=== PATIENT | male | born 1940 | race Caucasian/White ===

== ENCOUNTER 2023-07-07 12:38 | Outpatient (CLI) | payer MEDICARE, BC, SELFPAY ==
[2023-07-07] MEDS: TETRACAINE 0.5% OPHTH 1 DROP EYE-LEFT ×3 (12:50→13:16)
[2023-07-07] MEDS: BRIMONIDINE TARTRATE 0.2% OPHTH 1 DROP EYE-LEFT ×2 (12:54→13:30)
[2023-07-07 12:55] VITALS: BP 133/88; PULSE 64; RESP 16; O2SAT 95
--- NOTE | 2023-07-07 13:30 | W.PM.OPTPROC ---
Procedure Note Date of procedure: 07/07/23 Will [facility] bill your pro fee for this procedure?: Yes Procedure Description: SURGEON: Montse Solano MD PREOPERATIVE DIAGNOSIS: Posterior capsular opacity, left eye POSTOPERATIVE DIAGNOSIS: Posterior capsular opacity, left eye PROCEDURE: YAG laser capsulotomy, left eye ANESTHESIA: Topical. ESTIMATED BLOOD LOSS: None PATHOLOGY SPECIMEN: None COMPLICATIONS: None INDICATIONS: See consult note for details. The risks, benefits and alternatives of the procedure were explained to the patient, who elected to proceed and signed informed consent to do so. PROCEDURE: The patient was brought to the pre-holding area where the left eye was identified as the operative eye. I placed my initials above this eye. The patient received 2 sets of 1 drop of 0.5% tetracaine and 1 drop of 1% tropicamide. They also received 1 drop of 0.2% brimonidine. They received 1 drop of 0.5% tetracaine immediately prior to bringing them back for the procedure. The patient was then brought to the procedure room where the left eye was again identified as the operative eye. A YAG Aramndo capsulotomy lens was placed on the eye. The laser was administered using a total number of 13 shots with an energy of 2.4 mJ per shot for a total energy of 31 mJ. The patient tolerated the procedure well. DISPOSITION: The patient was taken back to the pre-holding area and given 1 drop of 0.2% brimonidine in the left eye. They were discharged to home in stable condition. The patient was instructed to call me or go to the emergency department with any sudden change, including dramatic loss of vision, severe pain in the eye or eyebrow region, nausea, or vomiting. The patient was instructed to use the 0.2% brimonidine 1 drop 2 times a day in the left eye for 1 week. The patient will follow up in the clinic in 1-2 weeks
== END 2023-07-07 13:31 | disposition home or self-care (01) ==
LOC: EYE PRC 12:44
PROVIDERS: Visit Provider Ophthalmology
DX: H26.9 Unspecified cataract (principal)
CPT/HCPCS: 66821; A9270

== ENCOUNTER 2024-04-05 07:52 | Day surgery (SDC) | payer MEDICARE, BC, SELFPAY ==
[2024-04-05] VITALS (24 sets, daily range): BP systolic 101–142; BP diastolic 57–90; PULSE 50–92; RESP 16–18; TEMP 35.9–36.6; O2SAT 92–99; BMI 28.0
[2024-04-05] MEDS: OXYCODONE (CR) 10 MG TAB.ER.12H PO (09:00)
[2024-04-05] MEDS: ACETAMINOPHEN 500 MG TABLET 1000 MG PO ×3 (09:00→23:56)
[2024-04-05] MEDS: LACTATED RINGERS 1000 ML 1,000 ML 100 ML IV (09:40)
[2024-04-05] MEDS: SODIUM CHLORIDE 0.9 % (FLUSH) 10 ML SYRINGE IVF (09:40)
[2024-04-05] MEDS: MIDAZOLAM HCL 1 MG/ML inj IVP (10:26)
[2024-04-05] MEDS: fentaNYL 100 MCG/2 ML inj IVP (10:26)
--- NOTE | 2024-04-05 10:31 | SUR.PREOP ---
TIME?OUT:?1025 PT/RN/MDA?VERIFICATION?OF?SURGICAL?SITE,?PROCEDURE,?AND?CONSENT OBTAINED?PRIOR?TO?INVASIVE?PROCEDURE.
--- NOTE | 2024-04-05 10:55 | W.PM.H&PU ---
History & Physical Update History & Physical Update H&P Reviewed and patient assessed: No changes noted
--- NOTE | 2024-04-05 10:56 | CRLHL7_ITS ---
For Patients: As a result of the Cures Act, medical imaging exams and procedure reports are released immediately into your electronic medical record. You may view this report before your referring provider. If you have questions, please contact your health care provider. INDICATION: Post operative knee arthroplasty TECHNIQUE: Knee radiograph 2 views left COMPARISON: None FINDINGS: Bone: No acute fractures or aggressive bone lesions are identified. Joint: The patient is status post a total knee arthroplasty with patellar resurfacing. No significant knee effusion is seen. Soft tissue: Overlying fabric artifacts moderately degrade the evaluation of the soft tissues and osseous structures. Varicose veins are present along the medial soft tissues. Soft tissue gas is present from recent surgery. No radiopaque foreign bodies are seen. IMPRESSION: 1. There is an unremarkable postoperative appearance of the knee arthroplasty. Dictated by Ethan Patton MD @ 04/05/2024 1:54:25 PM Dictated by: Ethan Patton MD @ 04/05/2024 13:54:29 (Electronically Signed)
[2024-04-05] MEDS: TRANEXAMIC ACID 100 MG/ML INJ 1000 MG IV (11:03)
[2024-04-05] MEDS: CEFAZOLIN 2 GM in 0.9 % SODIUM CHLORIDE Mini-bag 100 ML IVPB ×2 (11:03→18:07)
--- NOTE | 2024-04-05 12:18 | P.ORPRC_ITS ---
Procedure Note Date of procedure: 04/05/24 Procedure: PREOPERATIVE DIAGNOSIS: 1. Left knee osteoarthritis, primary, severe POSTOPERATIVE DIAGNOSIS: 1. Left knee osteoarthritis, primary, severe PROCEDURE: 1. Left total knee arthroplasty - subvastus SURGEON: Donta Vazquez MD. PROVIDER RELATIONS REP: Maximiliano Gutierrez PA-C - Of note, a skilled hair or beauty salon assistant was critical for this case to aid in patient positioning, tissue retraction, limb manipulation/positioning, and closure. ANESTHESIA: Spinal anesthetic EBL: 50ml IMPLANTS: DePuy J&J all cemented TKA - Attune PS femur size 7, size 7 tibia, 5 poly spacer, 41mm patella TOURNIQUET: 90 min at 300 torr COMPLICATIONS: None evident INDICATIONS: The patient is a pleasant 84-year-old male who has experienced severe left knee pain and difficulty bearing weight. Workup included x-rays w the [facility] revealed severe osteoarthrosis in the knee. Given the deformity, the dysfunction, and the pain, as well as the failure of nonoperative management, recommendation was made for surgery. FINDINGS: Full-thickness chondral loss diffusely throughout the medial compartment. To lesser degree but still significant patellofemoral and lateral compartment. Degenerative meniscus pathology (medial greater than lateral). Large effusion upon entering the joint. Large osteophytes around perimeter of the femur including posterior. Large popliteal cyst encountered. Ganglion cyst within the PCL tissue. DESCRIPTION OF PROCEDURE: Following a thorough discussion of risks, benefits, and alternatives consent was obtained and the left knee was marked. The patient was brought to the operating room and placed supine on the operating table. Induction of anesthesia was undertaken. 2 g IV Ancef and 1 g tranexamic acid was administered within 1 hr of incision preoperatively. Proper time-out was p erformed identifying proper patient, site, procedure. The operative extremity was prepped and draped in the appropriate sterile fashion using ChloraPrep after the patient was positioned supine with all bony prominences well padded. A longitudinal, anterior, midline skin incision was made starting approximately 3cm proximal to the superior pole of the patella and advanced distal to the tibial tubercle. A subvastus approach was utilized. A medial subperiosteal sleeve was created with knife, benoit elevator and curved osteotome. The retropatellar fatpad was resected and the synovium in the suprapatellar pouch excised to visualize the anterior femoral cortex. Femoral preparation was performed via an intramedullary guide. Step drill allowed access into the femoral canal. The distal cutting guide was placed with 5? of valgus and 11 mm cut on the distal femur due to a 10?+ flexion contracture. Femur was sized using a anterior referencing guide in 3? of external rotation. This found have a best fit with the sizing noted above. The 4 in 1 cutting block was then placed, and the distal femur shaped accordingly. The box cut was then created and the trial implant inserted to confirm appropriate fit. We turned our attention to the proximal tibia. Extramedullary guide was utilized for cutting with the goal of being 90 degree cut from the mechanical axis of the tibia in the varus/valgus plane utilizing tibial crest as the primary alignment. Initially a 2 mm resection was performed from the medial tibial plateau. Ultimately, balancing was achieved in both flexion and extensio n in both varus and valgus. The knee was able to achieve full extension as well comfortably. The patella was initially measured and found have a thickness of 27 mm. It was resected back to approximately 16.5 mm. It was sized to be a best fit with as noted above. This was drilled, trial placed. All trials were placed and found to have an excellent stability and balance. At this stage, trial implants were removed, the knee was thoroughly irrigated with normal saline, and the cement was mixed. After irrigation, the knee was thoroughly dried, and cement placed, with the real tibial and femoral implants placed along with the patella. Trial poly spacer was placed and confirmed to have excellent range of motion and full extension, and the real poly spacer opened and inserted. All extra cement was removed, and a 3 min Betadine soak performed. Finally, a final irrigation round with normal saline was performed. Closure performed with 0 PDS and #0 Stratafix for the quad tendon/retinaculum. 2-0 Vicryl/Stratafix for the subcutaneous and 4-0 Monocryl for subcuticular closure. Dressings were applied and the patient was awoken from anesthesia after the tourniquet deflated and transferred the PACU in stable condition. A skilled hair or beauty salon assistant was critical for this case to aid in patient positioning, tissue retraction, bone exposure, limb manipulation/positioning, patient safety, and closure. PLAN: 1. Weight bear as tolerated operative extremity. 2. 23 hr perioperative antibiotics. 3. Ice. 4. PT/OT consults for ambulation assistance/mobility education. 5. Social work consult for discharge planning. 6. DVT prophylaxis with at SCDs and aspirin twice daily.
--- NOTE | 2024-04-05 13:10 | P.ANES_ITS ---
Anesthesia Charges Start Date/Time Anesthesia Start Date: 04/05/24 Anesthesia Start Time: 10:47 Stop Date/Time Anesthesia Stop Date: 04/05/24 Anesthesia Stop Time: 13:07 Summary Extremes of Age - Over 70 or under 1: BENEFITS TECHNICIAN
--- NOTE | 2024-04-05 14:08 | W.ANESCHARGE ---
Anesthesia Charges Start Date/Time Anesthesia Start Date: 04/05/24 Anesthesia Start Time: 10:47 Stop Date/Time Anesthesia Stop Date: 04/05/24 Anesthesia Stop Time: 13:07 Summary Extremes of Age - Over 70 or under 1: MDA
--- NOTE | 2024-04-05 14:09 | P.NB_ITS ---
Nerve Block Nerve Block Time Seen by Provider: 10:30 Date Seen: 04/05/24 Type of block requested by surgeon for post-operative analgesia: adductor canal Side: left Time out performed: Yes Verification of patient name: Yes Verification of date of : Yes Site marking: site marked Name of person performing procedure: Gera Continuous monitoring Was continuous monitoring of O2 sat, B/P, cardiac cath lab manager, recorded every 15 minutes?: Yes Procedure Checklist: sterile prep, needles and gloves Ultrasound guided. Images saved: Yes Medications given in 5ml increments after negative aspiration: Marcaine %: 0.25 mL: 15 Needle gauge: 20 Precedex (mcg): 25 Patient tolerated procedure well: Yes Block Charges Block Charge (with Pro Fee): Femoral Nerve Use of Ultrasound Machine for Block: Yes- US Guidance/pain block
--- NOTE | 2024-04-05 14:09 | P.NB_ITS ---
Nerve Block Nerve Block Time Seen by Provider: 10:30 Date Seen: 04/05/24 Type of block requested by surgeon for post-operative analgesia: geniculars Time out performed: Yes Verification of patient name: Yes Verification of date of : Yes Site marking: site marked Name of person performing procedure: Gera Continuous monitoring Was continuous monitoring of O2 sat, B/P, compliance monitor, recorded every 15 minutes?: Yes Procedure Checklist: sterile prep, needles and gloves Ultrasound guided. Images saved: Yes Medications given in 5ml increments after negative aspiration: Marcaine %: 0.25 mL: 9 Needle gauge: 25 Patient tolerated procedure well: Yes Block Charges Block Charge (with Pro Fee): Genicular Nerve Block
--- NOTE | 2024-04-05 15:29 | PC.NURSE ---
Pt arrived to floor at 1340, arousable, oriented and vitally stable. Pt originally on 2L via NC for low O2 sats, since has improved and has been weaned off, sating mid s. Pt temperatures a little low, 96.5, Biar hugger placed, temperatures showing improvement. Spouse and son at bedside. Ice chips and water given, tolerating well. call light within reach.
--- NOTE | 2024-04-05 18:10 | PM.IMCN1 ---
Date of Consult Consult date: 04/05/24 Primary Care Provider: Sabina Mckinley PA-C Consult Narrative Narrative: Suresh Tovar is a 84 year old male who is relatively healthy except for severe Left knee osteoarthritis, for which he was admitted electively to undergo Left total knee arthroplasty. Estimated blood loss during the surgery today was about 50 mL. Admit the patient postoperatively and he was doing well, pain is controlled. He already was able he to urinate and walk to the bathroom. Review of Systems Status of ROS: Reports: 6 or more systems reviewed and unremarkable except as noted in History and below [facility] Medical History (Updated 04/04/24 @ 07:48 by Stella Ferreira RN) Osteoarthritis of left knee ?M17.12 - Unilateral primary osteoarthritis, left knee (ICD-10) Hyperlipidemia ?E78.5 - Hyperlipidemia, unspecified (ICD-10) Surgical History (Updated 04/05/24 @ 22:13 by Kanchan Marion MD) History of total right knee replacement (~2013) ?Z96.651 - Presence of right artificial knee joint (ICD-10) Social History (Updated 02/22/24 @ 09:42 by Alma Kasper ~ [facility]) Narrative: former smoker () for 65 years (caring for with dementia x2019) What is your current living situation?: I presently have a place to live Problems where you live: no known problems In the past 12 months, utilities in danger of being shut off: no In the past 12 mos, have been you worried that your food would run out before you had money to buy more?: never true In the past 12 mos, the food you bought just didn't last and you didn't have money to buy more?: never true Highest level of school completed/degree received: some college, no degree Smoking Status: Former smoker What tobacco products do you use: cigarettes Smoking packs per day: 3 Smoking cigarettes per day: 60.0 Years smoked: 10 Smoking pack-years: 30.00 Smoking quit date/years: >15 years ago Do you use any of these nicotine containing products: None Second hand tobacco smoke exposure: No How often do you have a drink containing alcohol: never How often do you have six or more drinks on one occasion: Never AUDIT-C Alcohol total score: 0 Non-prescribed substance use: denies use Caffeine: No How often does anyone, including family, friends and others, physically hurt you: never How often does anyone, including family, friends and others, insult or talk down to you: never How often does anyone, including family, friends and others, threaten you with harm: never How often does anyone, including family, friends and others, scream or curse at you: never service: No Meds Home Medications and Allergies Home Medications ?Medication ?Instructions ?Recorded ?Confirmed ?Type fesoterodine 4 mg tablet,extended 4 mg PO DAILY 02/22/24 04/05/24 History release 24 hr gabapentin 100 mg capsule 100 mg PO HS 02/22/24 04/05/24 History hydroxyzine HCl 10 mg tablet 10 mg PO HS PRN itch 02/22/24 04/05/24 History pravastatin 20 mg tablet 20 mg PO DAILY 02/22/24 04/05/24 History Allergies Allergy/AdvReac Type Severity Reaction Status Date / Time Penicillins Allergy Hives Verified 04/05/24 09:50 Exam Narrative: Exam Narrative: Physical exam GENERAL: Comfortable, no acute distress. HEAD AND NECK: Atraumatic, normocephalic CARDIOVASCULAR: RRR. Normal S1, S2. No murmurs. RESPIRATORY: Clear to auscultation B/L. Good air entry B/L. No wheezes or rhonchi. GASTROINTESTINAL: Not distended, not tender to palpation. NEUROLOGY: Alert, awake, oriented X 3. Normal speech. PSYCH: Normal mood, normal affect. Const: Vital Signs, click to edit/add: Vital Signs - 24 hr 04/05/24 09:07 04/05/24 10:26 04/05/24 10:30 Temperature 97.9 F Pulse Rate 58 L 55 L 53 L Pulse Rate [Right Pulse Oximeter] Respiratory Rate 16 16 16 Blood Pressure 142/90 H 131/82 113/71 Blood Pressure [Le ft Arm] Pulse Oximetry 96 96 95 Oxygen Delivery Me thod Room Air Nasal Cannula Nasal Cannula Oxygen Flow Rate 2 2 04/05/24 13:05 04/05/24 13:10 04/05/24 13:15 Temperature 97.2 F L Pulse Rate 55 L 55 L 54 L Pulse Rate [Right Pulse Oximeter] Respiratory Rate 16 16 16 Blood Pressure 101/64 104/65 105/72 Blood Pressure [Le ft Arm] Pulse Oximetry 94 94 94 Oxygen Delivery Me thod OxyMask OxyMask OxyMask Oxygen Flow Rate 4 4 4 04/05/24 13:20 04/05/24 13:25 04/05/24 13:30 Temperature Pulse Rate 53 L 54 L 55 L Pulse Rate [Right Pulse Oximeter] Respiratory Rate 16 16 16 Blood Pressure 109/67 107/66 107/67 Blood Pressure [Le ft Arm] Pulse Oximetry 93 93 93 Oxygen Delivery Me thod OxyMask OxyMask OxyMask Oxygen Flow Rate 4 4 4 04/05/24 13:35 04/05/24 13:40 04/05/24 13:45 Temperature Pulse Rate 54 L 50 L 53 L Pulse Rate [Right Pulse Oximeter] Respiratory Rate 16 16 16 Blood Pressure 109/66 123/76 126/72 Blood Pressure [Le ft Arm] Pulse Oximetry 93 92 93 Oxygen Delivery Me thod OxyMask Oxygen Flow Rate 4 2 2 04/05/24 13:48 04/05/24 14:00 04/05/24 14:15 Temperature 97.8 F 96.6 F L 97.4 F L Pulse Rate 51 L 53 L Pulse Rate [Right Pulse Oximeter] 92 Respiratory Rate 16 16 16 Blood Pressure 130/76 123/73 Blood Pressure [Le ft Arm] 123/76 Pulse Oximetry 92 94 92 Oxygen Delivery Me thod Nasal Cannula Oxygen Flow Rate 2 2 1 04/05/24 14:30 04/05/24 14:38 04/05/24 15:00 Temperature 97.8 F 97.8 F Pulse Rate 51 L 51 L 55 L Pulse Rate [Right Pulse Oximeter] Respiratory Rate 16 16 Blood Pressure 122/78 122/78 131/88 Blood Pressure [Le ft Arm] Pulse Oximetry 95 95 99 Oxygen Delivery Me thod Nasal Cannula Oxygen Flow Rate 0 2 Assessment and Plan Assessment and plan (1) Total knee replacement status: Problem comment: -Start early ambulation with physical therapy. -Start DVT prophylaxis tonight w/ Aspirin 81 mg BID. -pain management -perioperative antibiotics -Monitor for urine output postoperatively, bladder scan if needed. Status: Acute (2) Osteoarthritis of left knee: Problem comment: Severe, [id number] Status: Acute Plan As above Total Time Spent Total Time Spent: Time spent: Today I spent 75 minutes seeing the patient, discussing the patient with ER staff, reviewing Expanse and EPIC notes/diagnostics, discussing the care plan with our care time that includes social work, PT/OT, pharmacy, RT, snf and documenting my impressions and plan in the medical record.
--- NOTE | 2024-04-05 18:51 | PC.NURSE ---
shift note: vss stable. pt using IS to 2500 indept. lt knee drsg c/d/i, pt rating pain 05/26. pt tolerating reg diet. pt up 1/walker/GB to bathroom to void
[2024-04-05] MEDS: SENNOSIDES 1 TAB TABLET 2 TAB PO (21:09)
[2024-04-05] MEDS: ASPIRIN 81 MG TABLET EC PO (21:10)
[2024-04-06] MEDS: CEFAZOLIN 2 GM in 0.9 % SODIUM CHLORIDE Mini-bag 100 ML IVPB ×2 (01:16→08:37)
[2024-04-06 02:02] VITALS: BP 94/56; PULSE 57; RESP 16; TEMP 36.5; O2SAT 90
[2024-04-06] MEDS: ACETAMINOPHEN 500 MG TABLET 1000 MG PO ×2 (05:17→11:08)
--- NOTE | 2024-04-06 06:24 | PC.NURSE ---
Shift note ([id number]): Patient pleasant, alert and oriented. Rated pain in left knee 05/26. Dressing C,D&I. Ambulating with walker, gait belt and assist of one. Rec?d scheduled Tylenol. Active ice applied. O2 sats dropped to 86-89% on room air during night.?Patient denied feeling SOB at that time. Oxygen placed at 2.5 LPM to keep sats above 90%. O2 was later decreased to 1 LPM and sats remained 90-94%. Patient weaned off O2 and is 90-98% on room air at this time.?
[2024-04-06 06:59] LABS: Potassium* 4.4 mmol/L (3.6-5.1); Sodium* 135 mmol/L (135-149)
[2024-04-06 07:00] VITALS: PULSE 57; RESP 18
[2024-04-06 07:02] LABS: Blood Urea Nitrogen* 26 mg/dL (7-30); Creatinine* 1.1 mg/dL (0.5-1.5); Est. Creatinine Clearance* 52.54; Estimated Glomerular Filt Rate 67 ml/min
[2024-04-06 07:06] LABS: Basophils Percent Auto 0.2 % (0.0-3.0); Eosinophils Percent Auto 0.1 % (0.0-7.0); Hematocrit 39.5 % (37.0-53.0); Hemoglobin* 12.9 gm/dL (13.5-17.5); Immature Granulocytes Pct Auto 0.2 %; Lymphocytes Percent Auto 8.6 % (20-44); Mean Corpuscular HGB Conc 33 gm/dL (32-36); Mean Corpuscular Hemoglobin 29 pg (26-34); Mean Corpuscular Volume 90 fL (80-100); Monocytes Percent Auto 7.8 % (0.0-11.0); Neutrophils Percent Auto 83.1 % (42.0-72.0); Platelet Count* 201 K/uL (140-440); RDW Coefficient of Variation % 14.1 % (11.5-15.5); White Blood Count* 11.32 K/uL (4.50-11.00)
[2024-04-06 07:14] LABS: Slide Review Reflex No
[2024-04-06 08:05] VITALS: RESP 18; O2SAT 99
[2024-04-06 08:15] VITALS: BP 112/58; PULSE 57; RESP 18; TEMP 36.8; O2SAT 99
[2024-04-06] MEDS: SENNOSIDES 1 TAB TABLET 2 TAB PO (08:37)
[2024-04-06] MEDS: ASPIRIN 81 MG TABLET EC PO (08:37)
[2024-04-06] MEDS: OXYCODONE 5 MG TABLET PO (09:08)
[2024-04-06 11:00] VITALS: BP 127/72; PULSE 53; RESP 16; TEMP 36.4
--- NOTE | 2024-04-06 11:18 | PM.ORPN ---
Subjective Subjective Date Seen: 04/06/24 Principal diagnosis: Status postop day 1 left total knee arthroplasty Interval history: Patient reports doing well. States he is doing wonderful. No significant pain. Son reports that he has a high pain tolerance. No acute events over night. Pain managed with scheduled and PRN medications, ice. DVT prophylaxis: 81 mg aspirin by mouth twice daily, SCDs, walking. Denies fevers, chills, aches, N/V, CP, SOB/TEMPLETON, or lightheadedness. Ortho Exam Narrative Exam Narrative: -Patient appears comfortable; no apparent acute distress -Alert and oriented times 3 -Operative knee mildly swollen; soft tissues supple; no ecchymosis; no erythematous streaking Warmth appropriate -Surgical dressing clean, dry, intact; no drainage -Bilateral calfs soft; no significant swelling, edema, tenderness, erythema, discoloration, warmth, or palpable cords -2+ DP/PT pulses, intact dermatomes and myotomes distally (5/5 strength) Const Vital Signs, click to edit/add: Vital Signs - 24 hr 04/05/24 13:05 04/05/24 13:10 04/05/24 13:15 Temperature 97.2 F L Pulse Rate 55 L 55 L 54 L Pulse Rate [Right Pulse Oximeter] Respiratory Rate 16 16 16 Blood Pressure 101/64 104/65 105/72 Blood Pressure [Left Arm] Blood Pressure [Right Arm] Pulse Oximetry 94 94 94 Oxygen Delivery Method OxyMask OxyMask OxyMask Oxygen Flow Rate 4 4 4 04/05/24 13:20 04/05/24 13:25 04/05/24 13:30 Temperature Pulse Rate 53 L 54 L 55 L Pulse Rate [Right Pulse Oximeter] Respiratory Rate 16 16 16 Blood Pressure 109/67 107/66 107/67 Blood Pressure [Left Arm] Blood Pressure [Right Arm] Pulse Oximetry 93 93 93 Oxygen Delivery Method OxyMask OxyMask OxyMask Oxygen Flow Rate 4 4 4 04/05/24 13:35 04/05/24 13:40 04/05/24 13:45 Temperature Pulse Rate 54 L 50 L 53 L Pulse Rate [Right Pulse Oximeter] Respiratory Rate 16 16 16 Blood Pressure 109/66 123/76 126/72 Blood Pressure [Left Arm] Blood Pressure [Right Arm] Pulse Oximetry 93 92 93 Oxygen Delivery Method OxyMask Oxygen Flow Rate 4 2 2 04/05/24 13:48 04/05/24 14:00 04/05/24 14:15 Temperature 97.8 F 96.6 F L 97.4 F L Pulse Rate 51 L 53 L Pulse Rate [Right Pulse Oximeter] 92 Respiratory Rate 16 16 16 Blood Pressure 130/76 123/73 Blood Pressure [Left Arm] 123/76 Blood Pressure [Right Arm] Pulse Oximetry 92 94 92 Oxygen Delivery Method Nasal Cannula Oxygen Flow Rate 2 2 1 04/05/24 14:30 04/05/24 14:38 04/05/24 15:00 Temperature 97.8 F 97.8 F Pulse Rate 51 L 51 L 55 L Pulse Rate [Right Pulse Oximeter] Respiratory Rate 16 16 Blood Pressure 122/78 122/78 131/88 Blood Pressure [Left Arm] Blood Pressure [Right Arm] Pulse Oximetry 95 95 99 Oxygen Delivery Method Nasal Cannula Oxygen Flow Rate 0 2 04/05/24 15:00 04/05/24 15:00 04/05/24 15:00 Temperature 96.7 F L Pulse Rate Pulse Rate [Right Pulse Oximeter] 53 L Respiratory Rate 18 18 Blood Pressure Blood Pressure [Left Arm] 131/88 Blood Pressure [Right Arm] Pulse Oximetry 93 93 93 Oxygen Delivery Method Room Air Room Air Oxygen Flow Rate 04/05/24 15:30 04/05/24 16:30 04/05/24 17:30 Temperature 96.7 F L 96.7 F L 96.7 F L Pulse Rate 54 L 57 L 72 Pulse Rate [Right Pulse Oximeter] Respiratory Rate 18 18 18 Blood Pressure 142/80 H 122/78 136/90 H Blood Pressure [Left Arm] Blood Pressure [Right Arm] Pulse Oximetry 94 94 94 Oxygen Delivery Method Room Air Room Air Room Air Oxygen Flow Rate 04/05/24 18:30 04/05/24 19:42 04/05/24 23:00 Temperature 97.3 F L 97.5 F L 97.5 F L Pulse Rate 78 73 Pulse Rate [Right Pulse Oximeter] 63 Respiratory Rate 18 17 16 Blood Pressure 108/78 121/68 Blood Pressure [Left Arm] Blood Pressure [Right Arm] 101/57 L Pulse Oximetry 93 93 94 Oxygen Delivery Method Room Air Room Air Room Air Oxygen Flow Rate 2 04/05/24 23:00 04/05/24 23:00 04/06/24 02:02 Temperature 97.7 F Pulse Rate Pulse Rate [Right Pulse Oximeter] 57 L Respiratory Rate 16 16 Blood Pressure Blood Pressure [Left Arm] Blood Pressure [Right Arm] 94/56 L Pulse Oximetry 94 94 90 Oxygen Delivery Method Room Air Room Air Oxygen Flow Rate 2.5 04/06/24 08:05 04/06/24 08:05 04/06/24 08:15 Temperature 98.3 F Pulse Rate Pulse Rate [Right Pulse Oximeter] 57 L Respiratory Rate 18 18 Blood Pressure Blood Pressure [Left Arm] 112/58 L Blood Pressure [Right Arm] Pulse Oximetry 99 99 99 Oxygen Delivery Method Room Air Room Air Oxygen Flow Rate Assessment and Plan Assessment and plan (1) Total knee replacement status: Problem details: -Start early ambulation with physical therapy. -Start DVT prophylaxis tonight w/ Aspirin 81 mg BID. -pain management -perioperative antibiotics -Monitor for urine output postoperatively, bladder scan if needed. Status: Acute (2) Osteoarthritis of left knee: Problem details: Severe, [id number] status post total knee arthroplasty Status: Acute Plan - Complete 23 hour perioperative antibiotics. - PT/OT consult for education and assistance. - Social work consult for discharge planning - Prescribed analgesics as needed - DVT prophylaxis: 81 mg aspirin by mouth twice daily, walking, and SCDs - Anticipation is for discharge to home with family/friends today 04/06/2024 if the patient remains medically stable, pain is controlled, and they are safe with mobilization.
--- NOTE | 2024-04-06 12:10 | PC.SOCIAL ---
Social work paid internship met with pt and pt's son to complete a discharge planning assessment. Pt has not been admitted to any hospital in the last 30 days and is his own medical decision maker. Pt lives with his son in [place]. His bedroom and bathroom are connected and both on the first level. He also has grandchildren nearby that can help when needed. Pt is aware of meal delivery and home appliance installer services, but is not requesting resources on those at this time. Pt's son helps with daily ADLs at home. This is the pt's second joint and he feels comfortable with the recovery process and discharging home. No mental health needs identified. Social work to follow up if needed.
--- NOTE | 2024-04-06 13:15 | PC.NURSE ---
DC: Pt alert, oriented and vitally stable. Pt pain rated 0-2/10 throughout shift, though pt premedicated with prn oxy before PT/OT. Pt on regular diet and tolerates well. DC education given to pt and son, topic including meds and follow up, DC home at 1233.
== END 2024-04-06 12:33 | disposition home or self-care (01) ==
LOC: OR 07:54 → MEDSURG 07:59
PROVIDERS: PCP Physician Assistant Medical; Visit Provider Orthopaedic Surgery Sports Medicine
PROC: (CPT 27447; principal; 2024-04-05 11:00)
DX: M17.12 Unilateral primary osteoarthritis, left knee (principal); G89.18 Other acute postprocedural pain; M71.22 Synovial cyst of popliteal space [Baker], left knee; M67.462 Ganglion, left knee; E78.5 Hyperlipidemia, unspecified; Z96.651 Presence of right artificial knee joint; Z87.891 Personal history of nicotine dependence
CPT/HCPCS: 27447; 01402; 36415; 64447; 64454; 73560; 76942; 82565; 84132; 84295; 84520; 85025; 97110; 97116; 97161; 97165; 97530; 97535; 99100; A9270; C1776; J0665; J0690; J1100; J2250; J2371; J2405; J2704; J3010; J7120

== ENCOUNTER 2024-05-19 14:00 | Outpatient (RCR) | payer MEDICARE, BC, SELFPAY ==
--- NOTE | 2024-03-27 16:04 | PT.OPEX ---
PT [place] [facility] Eval PT [facility] Out[facility] Eval Start: 03/27/24 08:48 Freq: Status: Active Protocol: Document 03/27/24 15:47 KLV (Rec: 03/27/24 16:01 KLV [id number]) E-signed By Fani Jimenez, PT Physical Therapy Outpatient Evaluation Insurance Information Recert Due Date 06/21/24 Insurance Name Medicare B,[employer] Medical Diagnosis Left knee OA Pre and post-op L TKA 04/05/24 Treating Diagnosis Left knee pain, limited knee ROM, antalgic gait, muscle weakness Referring MD Taylor Rawls Suresh presents to PT with primary complaint of chronic left knee pain affecting his ability to go on prolong walks , stand for extended periods and drive for extended periods . Currently not using AD. X- rays indicated severe bone on bone OA. He had been caring for his with dementia however no longer assisting with this as he has started to have some mild short term memory loss as well. Generally he is independent and drives however lives with his son and daughter in law who do assist with laundry and cooking/ cleaning. He lives on the main level with 2 stairs to enter (no railings), tub shower on main level. Upstairs does have a walk-in shower however no railings to get to the top floor. Previous R TKA in 2013. Does note some shoulder pain/ wear and tear from job that he has retired from and looking to possibly have surgery on this in the near future. Pain Comments 2-12/24 Date of Last Physician Visit 02/22/24 Date of Surgery (If applicable) 04/05/24 Current Work Status Retired Objective Other/Pertinent Objective Knee ROM: -L 5-115 Gait: limited terminal knee extension, limited stance time L, trendelenburg L TTP medial and lateral joint lines Quad activation: good Functional Test Performed & Score LEFS: 18/80 Assessment Assessment/Impression Suresh is an 84 year old male presenting to PT for preparation of upcoming L TKA DOS 04/05/24 d/t end stage OA. Patient is independent with mobility and most ADLs however with beginning stages of short term memory loss his [id number] assists with laundry and cooking. Lives with them on the main level. Educated patient on where to obtain medical equipment if he is not able to locate his walker. Also discussed arranging rides to post- operative appointments and provided information for additional resources for this. Session focused on education of post-operative fall prevention precautions, transfers, gait with AD, stair negotiation, post-operative exercises. He is able to verbalize precautions and demonstrated independence with exercises, gait and stairs. He is appropriate to proceed with surgery at this time. Plan of Care Rehabilitation Potential Good Physical Therapy Goals By end of session today, patient will... Demonstrate appropriate gait pattern with 2WW to utilize post surgery for optimal safety when ambulating Demonstrate ability to negotiate stairs using appropriate stair pattern post surgery for optimal safety when at home and in community Verbalize understanding of most appropriate home set up including needed equipment for optimal safety and recovery post surgery Be independent in HEP program to show ability to perform appropriate exercises post surgery Treatment Plan/Direct Interventions Gait Training,Ice/Cold/ Vasopneumatic,Joint Mobilization,Manual Therapy, Neuromuscular Re-ed,Self-Care/ Home Management,Therapeutic Activities,Therapeutic Exercises Frequency/Duration Re-evaluate following surgery Patient Will Be Discharged From Therapy Completion of LTG(s), Independent w/HEP, Independently Progressing Evaluation Billing Untimed Code Treatment Minutes 25 Complexity Moderate Certification Information Initial Certification Date 03/27/24 Ending Certification Date 06/21/24 Provider Signature Required Yes Provider Signature Shows Agreement With POC & Medical Necessity Physician NPI Number Write NPI# Here Physician Comment/Change : Physician Signature & Date Requested Please Sign/Date Here
== END 2024-09-16 23:59 | disposition home or self-care (01) ==
PROVIDERS: Visit Provider Orthopaedic Surgery Sports Medicine
DX: M17.12 Unilateral primary osteoarthritis, left knee (principal); Z96.652 Presence of left artificial knee joint; Z51.89 Encounter for other specified aftercare
CPT/HCPCS: 97110; 97112; 97116; 97140; 97162; 97164; 97535